=== PATIENT | female | born 1940 | race Caucasian/White ===

== ENCOUNTER → 2016-09-09 | Outpatient (CLI) | payer MEDICARE, OTHER ==
[~2016-09-09] MED LIST: ACTOPLUS MET 151 TA2 PO; ACTOS PO; ADVAIR 5001 DISK W/D PO; ALBUTEROL MININEB NEB; ALBUTEROL2.5 MG/0.5 IH; ALBUTEROL2.5 MG/0.5 INH; ALPRAZOLAM PO; AMBIEN PO; AMBIEN10 MG PO; AMLODIPINE BESY10 MG PO; ASPIRIN PO; ASPIRIN81 M1 PO; ASPIRIN81 MG PO; AUGMENTIN875 MG PO; AZOR 5-20 MG T1 EACH PO; AZOR 5-40 MG1 UDTAB PO; AZOR 5/20 MG TA1 TAB PO; AZOR 5/40 MG TA1 TAB PO; B-12250 MCG PO; BENTYL10 M1 PO; BUSPAR PO; CALTRATE 600+D PO; CARVEDILOL25 MG PO; COMBIVENT MININEB INH; COMBIVENT U/D3 ML INH; CORDARONE200 M1 PO; COREG PO; COREG12.5 MG PO; COREG6.25 MG PO; DALIRESP500 MCG PO; DEMADEX PO; ECOTRIN81 M1 PO; ELIQUIS2.5 MG PO; FOSINOPRIL PO; FOSINOPRIL SODI40 M1 PO; GABAPENTIN600 MG PO; HYDRALAZINE HCL50 MG PO; HYDROCODON-ACE1 EAC1 PO; HYDROCODON-ACE1 EAC4 PO; IMDUR PO; IMDUR-ER60 M1 PO; IMDUR-ER60 M3 PO; IMDUR-ER60 MG PO; IMDUR30 MG PO; ISORDIL PO; K-DUR20 ME1 PO; K-DUR20 ME2 PO; LASIX PO; LEVAQUIN250 MG PO; LISINOPRIL-HCTZ1 T19 PO; MICRO-K PO; MONOPRIL40 MG PO; MUCINEX DM1 TAB.SR . PO; NEBULIZER1 KI1 MC; NEURONTIN PO; NEURONTIN600 MG PO; NEXIUM PO; NITROGLYCERIN0.4 MG SL; NITROSTAT0.4 MG SL; NORCO1 TAB 10/3 DOB; NORVASC PO; NORVASC10 MG PO; OXYCODON HCL-AP1 TA2 PO; OXYGEN; PERCOCET 10/3251 TAB PO; PERCOCET 5-3251 TAB PO; PERCOCET10 PO; PIOGLITAZONE-M1 EAC1 PO; PLAVIX PO; PLENDIL PO; PRADAXA75 MG PO; PREDNISONE PO; PREDNISONE10 MG PO; PRILOSEC20 MG PO; SINGULAIR PO; SPIRIVA18 MCG INH; SUPER B COMPLEX1 CAP PO; SYMBICORT 160/4.6 G1 IH; SYMBICORT 16010.2 GM IH; SYMBICORT INH; SYNTHROID PO; SYNTHROID0.1 MG PO; THEO-DUR300 MG PO; THEOPHYLLIN PO; THEOPHYLLINE600 MG PO; TOPROL XL PO; VICODIN 5/500 T1 TAB PO; VIT E PO; VITAMIN B-121000 MCG PO; VITAMIN B12 PO; VITAMIN B12-FO1 EACH PO; VITAMIN D35000 UNI1 PO; VITAMIN D35000 UNIT PO; VITAMIN D5000 UNIT PO; VITAMIN D50000 UNIT PO; VITAMIN E1000 UNI1 PO; VITAMIN E400 UNI4 PO; VYTORIN 10-40 M1 TAB PO; VYTORIN 10/40 M1 TAB PO; VYTORIN 10/80 T1 TAB PO; ZOLOFT PO; ZOLOFT100 MG PO; ZOLPIDEM TARTRA10 M1 PO; ZOLPIDEM TARTRA10 MG PO; ZOVIRAX PO; [UNRECOGNIZED DRUG - OTHER]
--- NOTE | ~2016-09-09 | CT57 ---
[facility] A Service of [facility] RADIOLOGY TEXT RESULTS PATIENT: KAMRYN CORTEZ LOCATION: [facility] : 40 UNIT #: [id number] AGE: [address]: Matheus Suarez MD SEX: F ORDER DR: [id number] [facility] [address] [place], [place] [address] [id number] O MR#: [id number] Acc #: [id number] NAME: KAMRYN CORTEZ. : 1940 SEX: F STUDY DATE/TIME: 09/09/2016 13:03 UNIT: [facility] ROOM: STUDY DESCRIPTION: CT Chest Wo Cont Attending Physician: Matheus Suarez M.D. Referring Physician: Matheus Suarez M.D. Ordering Physician: Physician Non-Staff Primary Care Physician: Dillan Muller M.D. MEDICAL IMAGING REPORT This report is preliminary unless electronic signature is present EXAM CT chest, 09/09/2016 INDICATION Pulmonary infiltrate. Pneumonia. Pleural effusion. Shortness of air for [address] of the thorax without contrast. Coronal and sagittal reconstructions were obtained. This CT exam was performed with one or more of the following radiation dose reduction techniques: automatic exposure control, adjustment of mA and/or kV according to patient size, and iterative reconstruction. COMPARISON CT thorax 05/07/2016 and 05/23/2015. FINDINGS The poorly defined ground-glass density in the superior segment right lower lobe is unchanged from 05/17/2016. This however has increased from the April 2015 comparison. Slow-growing neoplastic process such as bronchioalveolar cell carcinoma should be considered and this should be closely followed. No new pulmonary opacities. There is background emphysema. The central airways are patent. No pathologically enlarged mediastinal or hilar lymph nodes. No thoracic aortic aneurysm. There has been prior aortic valve replacement. No pericardial or pleural effusion. [facility] A Service of [facility] RADIOLOGY TEXT RESULTS PATIENT: KAMRYN CORTEZ LOCATION: [facility] : 40 UNIT #: [id number] AGE: [address]: Matheus Suarez MD SEX: F ORDER DR: There is a nonobstructing calculus in the right kidney. No acute osseous abnormalities. IMPRESSION 1. No change in the poorly defined ground-glass density in the superior segment right lower lobe. This should be closely followed to differentiate a benign etiology from possible bronchioalveolar cell carcinoma. 2. Emphysema. Dictated by... Carlos Saul M.D. THIS IS AN ELECTRONICALLY VERIFIED REPORT Carlos Saul M.D. at 09/10/2016 9:23 AM BA/yasmin TD: 09/09/2016 22:05 JOB #: [id number] MEDICAL IMAGING REPORT COPY
== END | disposition home or self-care (01) ==
LOC: CCAT 12:35
DX: R91.8 Other nonspecific abnormal finding of lung field (principal); J43.9 Emphysema, unspecified; J98.4 Other disorders of lung
CPT/HCPCS: 71250